=== PATIENT | male | born 1960 | race Caucasian/White ===

== ENCOUNTER → 2016-06-20 | Outpatient (CLI) | payer OTHER ==
--- NOTE | 2016-06-20 18:06 | DX ---
Left shoulder, 3 views. HISTORY: Shoulder pain. FINDINGS: A 1.6 cm calcific deposit is present in the region of the distal rotator cuff compatible wi th calcific tendinopathy and/or bursitis. Moderate glenohumeral degenerative joint disease with marginal osteophytes and joint space narrowing. No fracture or dislocation. IMPRESSION: 1. Calcific tendinopathy/bursitis, distal rotator cuff. 2. Moderate glenohumeral degenerative joint disease.
--- NOTE | 2016-06-20 18:08 | DX ---
Left hand, 3 views. HISTORY: Pain. FINDINGS: Joint spaces are maintained. Minimal periarticular erosive changes involve the proximal pha lanx of the second digit at the second metacarpophalangeal joint. Moderate degenerative arthropathy o f the distal radial ulnar joint. No fracture or subluxation. IMPRESSION: 1. Degenerative changes at the distal radial ulnar joint. 2. Mild erosive changes at the second metacarpal phalangeal joint.
== END ==
LOC: FIMAGING 12:13
PROVIDERS: ATTEND Physician Assistant
DX: M19.042 Primary osteoarthritis, left hand (principal); M75.32 Calcific tendinitis of left shoulder; M19.012 Primary osteoarthritis, left shoulder

== ENCOUNTER 2016-08-16 15:18 | Emergency (ER) | payer OTHER ==
--- NOTE | 2016-08-16 15:43 | EDPHY ---
H & P Stated Complaint: Abdominal Pain/Severe Time Seen by Provider: 08/16/16 15:38 - Personal History Current Tetanus/Diphtheria Vaccine: Yes Current Tetanus Diphtheria and Acellular Pertussis (TDAP): Yes - Medical/Surgical History Hx Asthma: No Hx Chronic Respiratory Disease: No Hx Diabetes: No Hx Cardiac Disease: No Hx Renal Disease: No Hx Cirrhosis: No Hx Alcoholism: No Hx HIV/AIDS: No Hx Splenectomy or Spleen Trauma: No Other PMH: DEPRESSION, IBS - Social History Smoking Status: Never smoked Constitutional: Initial Vital Signs Temperature (C) 36.8 C 08/16/16 15:29 Heart Rate 83 08/16/16 15:29 Respiratory Rate 16 08/16/16 15:29 Blood Pressure 129/69 H 08/16/16 15:29 O2 Sat (%) 97 08/16/16 15:29 O2 Delivery Mode Nasal Cannula O2 (L/minute) 2 Allergies/Adverse Reactions: No Known Allergies Allergy (Unverified 05/30/14 16:39) Home Medications: Medication Instructions Recorded Famotidine [Pepcid 20 MG (OTC)] 20 mg PO DAILY #10 tab 08/16/16 HYDROcodone/APAP 10/325 [[place] 1 - 2 each PO Q4-6PRN PRN #20 tab 08/16/16 10/325] [place] Carbonate 08/16/16 Propranolol Sr 08/16/16 Seroquel 08/16/16 Trileptal 08/16/16 Medical Decision Making ED Course/Re-evaluation: CHIEF COMPLAINT: "My abdomen is burning" HISTORY OF PRESENT ILLNESS: The patient is a 55 y/o male complaining of acute onset severe lower abdominal pain beginning about 1 hour prior to arrival. He has a history of IBS, but states his pain today is unlike those symptoms. He describes his pain as burning and worst on the left lower side of his abdomen. He has no history of reflux or peptic ulcers, but states he had "bad heartburn" for the last 2 days. He has not used NSAIDs recently and denies history of abdominal surgeries or ulcerative GI disease. His last food intake was last night, but he has been sipping on water throughout the day. REVIEW OF SYSTEMS: A 10 point review of systems was performed and is negative with the exception of the elements mentioned in the history of present illness. PHYSICAL EXAM: HR, BP, O2 Sat, RR. Temp noted. General Appearance: Alert, well hydrated, appropriate, and uncomfortable- appearing with knees pulled up. Head: Atraumatic without scalp tenderness or obvious injury Eyes: Pupils equal, round, reactive to light and accommodation, EOMI, no trauma , no injection. Ears: Clear bilaterally, no perforation, normal landmarks Nose: Atraumatic, no rhinorrhea, clear. Throat: There is no erythema or exudates, no lesions, normal tonsils, mucus membranes moist. Neck: Supple, nontender, no lymphadenopathy. Respiratory: No retractions, no distress, no wheezes, and no accessory muscle use. Lungs are clear to auscultation bilaterally. Cardiovascular: Regular rate and rhythm, no murmurs, rubs, or gallops. Good capillary refill all extremities. Gastrointestinal: Abdomen is soft, diffuse tenderness that is severe in the LLQ with rebound, guarding, & peritoneal signs. Musculoskeletal: Normal active ROM of all extremities, atraumatic. Neurological: Alert, appropriate, and interactive. The patient has normal DTRs and non-focal cranial nerves, motor, sensory, and cerebellar exam. Skin: No rashes, good turgor, no nodules on palpation. Past medical history: Bipolar disorder, IBS Past surgical history: Denies Family history: Noncontributory Social history: Friend at bedside DIAGNOSTICS/PROCEDURES/CRITICAL CARE TIME: Study: CT of the Abdomen Indication: Severe pain, rebound, guarding Results: CT scan of the abdomen was obtained. The results of the study are nothing acute. The study was read by the radiologist, Dr. Berman. I viewed the images myself on the PACS system. DIFFERENTIAL DIAGNOSIS: The differential diagnosis for the patient's abdominal pain included but was not limited to appendicitis, cholecystitis, hernias, testicular torsion, gastritis, and urinary tract infection. MEDICAL DECISION MAKING: This is a 55 y/o male with a history of IBS who presents with acute severe "burning" LLQ abdominal pain 1 hour ago. He denies other associated symptoms and has no prior history of abdominal surgeries. He has severe LLQ tenderness with rebound, guarding, and peritoneal signs on exam. He is afebrile and normotensive. Plan for IV, labs, pain management, and imaging. 1mg IV Dilaudid, 4mg IV Zofran, and 30mg IV Toradol administered. ISTAT is normal. Patient will be sent to CT. 1652: CT is negative. Labs are unremarkable. Patient will be discharged with diagnosis of gastritis and IBS with scripts for [place] and Pepcid and referral to GI. He is comfortable with this plan. Return precautions given. - Data Points Laboratory Results: Laboratory Results 08/16/16 15:50 08/16/16 15:50 08/16/16 08/16/16 08/16/16 15:54 15:50 15:50 WBC RBC Hgb POC Hgb 15.0 gm/dL gm/dL (14.5-17.3) Hct POC Hct 44 % % (42.8-50.6) MCV MCH MCHC RDW Plt Count MPV Neut % (Auto) Lymph % (Auto) [place] % (Auto) Eos % (Auto) Baso % (Auto) Nucleat RBC Rel Count Absolute Neuts (auto) Absolute Lymphs (auto) Absolute Monos (auto) Absolute Eos (auto) Absolute Basos (auto) Absolute Nucleated RBC Immature Gran % Immature Gran # PT 12.6 SEC SEC (12.0-15.0) INR 0.95 (0.83-1.16) APTT 25.9 SEC SEC (23.0-38.0) POC Sodium 141 mEq/L mEq/L (134-144) Sodium 141 mEq/L mEq/L (134-144) POC Potassium 3.7 mEq/L mEq/L (3.3-5.0) Potassium 4.0 mEq/L mEq/L (3.5-5.2) POC Chloride 107 mEq/L mEq/L (96-108) Chloride 107 mEq/L mEq/L (97-110) Carbon Dioxide 22 mEq/l mEq/l (22-31) Anion Gap 12 mEq/L mEq/L (8-16) POC BUN 11 mg/dL mg/dL (7-23) BUN 13 mg/dL mg/dL (7-23) Creatinine 0.9 mg/dL mg/dL (0.7-1.3) POC Creatinine 1.0 mg/dL mg/dL (0.8-1.5) Estimated GFR > 60 Glucose 85 mg/dL mg/dL (70-100) POC Glucose 88 mg/dL mg/dL (70-100) Calcium 8.6 mg/dL mg/dL (8.5-10.4) Total Bilirubin 0.7 mg/dL mg/dL (0.1-1.4) Conjugated Bilirubin 0.4 mg/dL mg/dL (0.0-0.5) Unconjugated Bilirubin 0.3 mg/dL mg/dL (0.0-1.1) AST 16 IU/L L IU/L (17-59) ALT 27 IU/L IU/L (21-72) Alkaline Phosphatase 75 IU/L IU/L (38-126) Total Protein 6.1 g/dL L g/dL (6.3-8.2) Albumin 3.9 g/dL g/dL (3.5-5.0) Lipase 98.0 IU/L IU/L (23-300) 08/16/16 15:50 WBC 8.75 10^3/uL 10^3/uL (3.80-9.50) RBC 4.74 10^6/uL 10^6/uL (4.40-6.38) Hgb 14.8 g/dL g/dL (13.7-17.5) POC Hgb Hct 43.2 % % (40.0-51.0) POC Hct MCV 91.1 fL fL (81.5-99.8) MCH 31.2 pg pg (27.9-34.1) MCHC 34.3 g/dL g/dL (32.4-36.7) RDW 12.3 % % (11.5-15.2) Plt Count 188 10^3/uL 10^3/uL (150-400) MPV 9.9 fL fL (8.7-11.7) Neut % (Auto) 65.0 % % (39.3-74.2) Lymph % (Auto) 20.1 % % (15.0-45.0) [place] % (Auto) 13.5 % H % (4.5-13.0) Eos % (Auto) 1.0 % % (0.6-7.6) Baso % (Auto) 0.2 % L % (0.3-1.7) Nucleat RBC Rel Count 0.0 % % (0.0-0.2) Absolute Neuts (auto) 5.68 10^3/uL 10^3/uL (1.70-6.50) Absolute Lymphs (auto) 1.76 10^3/uL 10^3/uL (1.00-3.00) Absolute Monos (auto) 1.18 10^3/uL H 10^3/uL (0.30-0.80) Absolute Eos (auto) 0.09 10^3/uL 10^3/uL (0.03-0.40) Absolute Basos (auto) 0.02 10^3/uL 10^3/uL (0.02-0.10) Absolute Nucleated RBC 0.00 10^3/uL 10^3/uL (0-0.01) Immature Gran % 0.2 % % (0.0-1.1) Immature Gran # 0.02 10^3/uL 10^3/uL (0.00-0.10) PT INR APTT POC Sodium Sodium POC Potassium Potassium POC Chloride Chloride Carbon Dioxide Anion Gap POC BUN BUN Creatinine POC Creatinine Estimated GFR Glucose POC Glucose Calcium Total Bilirubin Conjugated Bilirubin Unconjugated Bilirubin AST ALT Alkaline Phosphatase Total Protein Albumin Lipase Medications Given: Discontinued Medications Hydromorphone HCl (Dilaudid) 1 mg IVP EDNOW ONE Stop: 08/16/16 15:54 Last Admin: 08/16/16 16:12 Dose: 1 mg Sodium Chloride (Ns) 1,000 mls @ 0 mls/hr IV ONCE ONE PRN Reason: Wide Open Stop: 08/16/16 15:54 Last Admin: 08/16/16 15:56 Dose: 1,000 mls Sodium Chloride (Ns) 1,000 mls @ 0 mls/hr IV ONCE ONE PRN Reason: Wide Open Stop: 08/16/16 15:54 Last Admin: 08/16/16 16:12 Dose: 1,000 mls Ketorolac Tromethamine (Toradol) 30 mg IVP EDNOW ONE Stop: 08/16/16 15:54 Last Admin: 08/16/16 16:11 Dose: 30 mg Ondansetron HCl (Zofran) 4 mg IVP EDNOW ONE Stop: 08/16/16 16:03 Last Admin: 08/16/16 16:12 Dose: Not Given Point of Care Test Results: 08/16/16 15:54 POC Sodium 141 POC Potassium 3.7 POC Chloride 107 POC BUN 11 POC Creatinine 1.0 POC Glucose 88 Departure - Departure Disposition: Home, Routine, Self-Care Clinical Impression: Gastritis Qualifiers: Gastritis type: other gastritis Chronicity: acute Gastritis bleeding: without bleeding Qualified Code(s): K29.00 - Acute gastritis without bleeding IBS (irritable bowel syndrome) Qualifiers: Irritable bowel syndrome type: other Qualified Code(s): K58.8 - Other irritable bowel syndrome Condition: Good Instructions: Famotidine (By mouth), Hydrocodone/Acetaminophen (By mouth), Gastritis (ED), Irritable Bowel Syndrome (ED) Additional Instructions: 1. Take [place] as prescribed when needed for pain. 2. Take Pepcid daily as prescribed for symptoms. 3. 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 4. Return to ED for worsening of condition. Referrals: Indio Elder MD [Primary Care Provider] - As per Instructions Jose Gill MD [Medical Doctor] - As per Instructions Prescriptions: Famotidine [Pepcid 20 MG (OTC)] 20 mg PO DAILY #10 tab HYDROcodone/APAP 10/325 [[place] 10/325] 1 - 2 each PO Q4-6PRN PRN #20 tab PRN Reason: Pain, Moderate Report Scribed for: Nicolás Diego Report Scribed by: Ashely Tuttle Date of Report: 08/16/16 Time of Report: 17:08
[2016-08-16] MEDS ORDERED: KETOROLAC 30 MG/1 ML SDV IVP ONE (15:53)
[2016-08-16] MEDS ORDERED: NS 1,000 ML IV ONE ×2 (15:53)
[2016-08-16] MEDS ORDERED: HYDROmorphONE/DILAUDID 1 MG/ML SYR IVP ONE (15:53)
[2016-08-16] MEDS ORDERED: ONDANSETRON 4 MG/2 ML VIAL IVP ONE (16:02)
[2016-08-16] MEDS ORDERED: KETOROLAC 15 MG/1 ML SDV ONE (16:03)
[2016-08-16 16:12] LABS: % IMMATURE GRANULYOCYTES 0.2 % (0.0-1.1); ABSOLUTE IMMATURE GRANULOCYTES 0.02 10^3/uL (0.00-0.10); ADD DIFF? NO; ADD MORPH? NO; ADD SCAN? NO; ATYPICAL LYMPHOCYTE FLAG 10 (0-99); FRAGMENT RBC FLAG 0 (0-99); HEMATOCRIT 43.2 % (40.0-51.0); HEMOGLOBIN 14.8 g/dL (13.7-17.5); LEFT SHIFT FLG 20 (0-99); LIPEMIA HEMOLYSIS FLAG 90 (0-99); MEAN CELL HEMOGLOBIN 31.2 pg (27.9-34.1); MEAN CELL HEMOGLOBIN CONCENTR. 34.3 g/dL (32.4-36.7); MEAN CELL VOLUME 91.1 fL (81.5-99.8); MEAN PLATELET VOLUME 9.9 fL (8.7-11.7); PLATELET CLUMPS FLAG 0 (0-99); PLATELET COUNT 188 10^3/uL (150-400); RED BLOOD CELL COUNT 4.74 10^6/uL (4.40-6.38); RED CELL DISTRIBUTION WIDTH 12.3 % (11.5-15.2)
[2016-08-16 16:21] LABS: INR 0.95 (0.83-1.16); PROTIME(PATIENT) 12.6 SEC (12.0-15.0)
[2016-08-16 16:22] LABS: APTT 25.9 SEC (23.0-38.0)
[2016-08-16 16:23] LABS: ALANINE AMINOTRANSFERASE 27 IU/L (21-72); ALBUMIN 3.9 g/dL (3.5-5.0); ALKALINE PHOSPHATASE 75 IU/L (38-126); ANION GAP 12 mEq/L (8-16); ASPARTATE AMINOTRANSFERASE 16 IU/L (17-59); BILIRUBIN,TOTAL 0.7 mg/dL (0.1-1.4); CALCIUM 8.6 mg/dL (8.5-10.4); CARBON DIOXIDE 22 mEq/l (22-31); CHLORIDE 107 mEq/L (97-110); CREATININE 0.9 mg/dL (0.7-1.3); GLOMERULAR FILTRATION RATE > 60; GLUCOSE 85 mg/dL (70-100); SODIUM 141 mEq/L (134-144); TOTAL PROTEIN 6.1 g/dL (6.3-8.2)
[2016-08-16 16:42] VITALS: PULSE 75
[2016-08-16 16:46] LABS: BILIRUBIN-CONJUGATED 0.4 mg/dL (0.0-0.5); BILIRUBIN-UNCONJUGATED 0.3 mg/dL (0.0-1.1)
[2016-08-16 17:50] VITALS: BP 122/76; RESP 15; TEMP 97.9; O2SAT 98
== END 2016-08-16 17:50 | disposition home or self-care (01) ==
DX: K29.00 Acute gastritis without bleeding (principal); K58.8 Other irritable bowel syndrome
CPT/HCPCS: 74177; 96361; 96374; 96375; 99285; J1170; J1885; 82947-QW